=== PATIENT | male | born 1945 | race African-American/Black ===

== ENCOUNTER 2020-01-26 09:04 | Observation (INO) ==
[2020-01-26 09:31] LABS: Basophils % 0.3 % (0.0-0.8); Eosinophils # 0.2 10*3/uL (0.0-0.87); Eosinophils % 3.2 % (0.00-10.9); Hematocrit 41.3 VOL% (42.0-52.0); Hemoglobin 13.2 GM/DL (14.0-18.0); Immature Granulocytes % 0.2 %; Immature Granulocytes Absolute 0.01 #; Lymphocytes % 31.1 % (21.2-54.2); Mean Corpuscular Volume 90.8 FL (87-102); Mean Platelet Volume 9.8 FL (9.6-12.0); Monocytes % 9.1 % (1.7-12.7); Neutrophils % 56.1 % (38.7-73.9); Platelet Count 229 T/CUMM (130-400); Red Blood Count 4.55 MC/CUMM (3.8-5.5); Red Cell Distribution Width 13.4 % (9.3-17.3); White Blood Count 6.5 T/CUMM (4-12)
[2020-01-26 10:16] LABS: Albumin 3.6 G/DL (3.4-5.0); Bilirubin,Total 0.6 MG/DL (0.2-1.0); Calcium 9.8 MG/DL (8.5-10.1); Osmolality,Calculated 281.7 MOS/KG (273-304); Total Protein 7.3 G/DL (6.4-8.3)
[2020-01-26] MEDS ORDERED: ONDANSETRON 4 MG/2 ML VIAL IV PRN (12:12)
[2020-01-26] MEDS ORDERED: ACETAMINOPHEN 325 MG TABLET PO PRN (12:12)
[2020-01-26] MEDS ORDERED: DEXTROSE 50% 25 GM/50 ML VIAL IV PRN (12:37)
[2020-01-26] MEDS ORDERED: GLUCAGON 1 MG VIAL IM PRN (12:37)
[2020-01-26] MEDS: SODIUM CHLORIDE 0.9% 1,000 ML IV SCH ×2 (14:28→22:25)
[2020-01-26] MEDS: DOCUSATE SODIUM 100 MG CAPSULE PO SCH (21:01)
[2020-01-26] MEDS: MECLIZINE 25 MG TABLET PO SCH (22:31)
[2020-01-26] MEDS: FLUTICASONE 50 MCG NASAL SPRAY 16 GM BOTTLE BOTH NARES SCH (22:31)
[2020-01-26] MEDS: BRIMONIDINE 0.2% OPH SOLN 5 ML BOTTLE BOTH EYES SCH (22:32)
[2020-01-26] MEDS: BIMATOPROST 0.01% OPH SOLN 2.5 ML BOTTLE BOTH EYES SCH (22:32)
[2020-01-26] MEDS: DONEPEZIL 10 MG TABLET PO SCH (22:32)
[2020-01-27] MEDS: SODIUM CHLORIDE 0.9% 1,000 ML IV SCH ×3 (05:57→22:11)
[2020-01-27] MEDS: FENOFIBRATE 160 MG TABLET PO SCH (08:31)
[2020-01-27] MEDS: SUCRALFATE 1 GM/10 ML UDCUP PO SCH ×4 (08:31→20:43)
[2020-01-27] MEDS: ASPIRIN EC 81 MG TABLET PO SCH (08:32)
[2020-01-27] MEDS: MECLIZINE 25 MG TABLET PO SCH ×2 (08:32→20:43)
[2020-01-27] MEDS: MAGNESIUM OXIDE 400 MG TABLET PO SCH (08:32)
[2020-01-27] MEDS: FEXOFENADINE 180 MG TABLET PO SCH (08:32)
[2020-01-27] MEDS: CHOLECALCIFEROL 1,000 UNIT TABLET PO SCH (08:32)
[2020-01-27] MEDS: DOCUSATE SODIUM 100 MG CAPSULE PO SCH ×2 (08:32→20:43)
[2020-01-27] MEDS: PANTOPRAZOLE 40 MG TABLET PO SCH (08:33)
[2020-01-27] MEDS: LINACLOTIDE 145 MCG CAPSULE PO SCH (08:33)
[2020-01-27] MEDS: FERROUS SULFATE 325 MG TABLET PO SCH (08:33)
[2020-01-27] MEDS: VENLAFAXINE XR 75 MG CAPSULE PO SCH (08:33)
[2020-01-27] MEDS: metFORMIN 500 MG TABLET PO SCH (08:33)
[2020-01-27] MEDS: BRIMONIDINE 0.2% OPH SOLN 5 ML BOTTLE BOTH EYES SCH ×2 (08:34→20:43)
[2020-01-27] MEDS: ROSUVASTATIN 10 MG TABLET PO SCH (08:34)
[2020-01-27] MEDS: levETIRAcetam 500 MG TABLET PO SCH ×2 (15:57→20:43)
[2020-01-27] MEDS: DONEPEZIL 10 MG TABLET PO SCH (20:39)
[2020-01-27] MEDS: FLUTICASONE 50 MCG NASAL SPRAY 16 GM BOTTLE BOTH NARES SCH (20:42)
[2020-01-27] MEDS: BIMATOPROST 0.01% OPH SOLN 2.5 ML BOTTLE BOTH EYES SCH (20:44)
[2020-01-28] MEDS: SODIUM CHLORIDE 0.9% 1,000 ML IV SCH ×4 (04:13→23:59)
[2020-01-28] MEDS: ASPIRIN EC 81 MG TABLET PO SCH (08:49)
[2020-01-28] MEDS: BRIMONIDINE 0.2% OPH SOLN 5 ML BOTTLE BOTH EYES SCH ×2 (08:49→20:55)
[2020-01-28] MEDS: VENLAFAXINE XR 75 MG CAPSULE PO SCH (08:50)
[2020-01-28] MEDS: MECLIZINE 25 MG TABLET PO SCH ×2 (08:50→20:55)
[2020-01-28] MEDS: MAGNESIUM OXIDE 400 MG TABLET PO SCH (08:50)
[2020-01-28] MEDS: FERROUS SULFATE 325 MG TABLET PO SCH (08:50)
[2020-01-28] MEDS: CHOLECALCIFEROL 1,000 UNIT TABLET PO SCH (08:50)
[2020-01-28] MEDS: PANTOPRAZOLE 40 MG TABLET PO SCH (08:50)
[2020-01-28] MEDS: levETIRAcetam 500 MG TABLET PO SCH ×2 (08:50→20:55)
[2020-01-28] MEDS: FENOFIBRATE 160 MG TABLET PO SCH (08:50)
[2020-01-28] MEDS: FEXOFENADINE 180 MG TABLET PO SCH (08:51)
[2020-01-28] MEDS: metFORMIN 500 MG TABLET PO SCH (08:51)
[2020-01-28] MEDS: ROSUVASTATIN 10 MG TABLET PO SCH (08:51)
[2020-01-28] MEDS: SUCRALFATE 1 GM/10 ML UDCUP PO SCH ×4 (08:51→20:55)
[2020-01-28] MEDS: DOCUSATE SODIUM 100 MG CAPSULE PO SCH ×2 (08:51→20:55)
[2020-01-28] MEDS: LINACLOTIDE 145 MCG CAPSULE PO SCH (08:52)
[2020-01-28] MEDS: DONEPEZIL 10 MG TABLET PO SCH (20:54)
[2020-01-28] MEDS: FLUTICASONE 50 MCG NASAL SPRAY 16 GM BOTTLE BOTH NARES SCH (20:55)
[2020-01-28] MEDS: BIMATOPROST 0.01% OPH SOLN 2.5 ML BOTTLE BOTH EYES SCH (20:55)
[2020-01-29] MEDS: SODIUM CHLORIDE 0.9% 1,000 ML IV SCH (07:11)
[2020-01-29] MEDS: FENOFIBRATE 160 MG TABLET PO SCH (08:54)
[2020-01-29] MEDS: ROSUVASTATIN 10 MG TABLET PO SCH (08:55)
[2020-01-29] MEDS: PANTOPRAZOLE 40 MG TABLET PO SCH (08:55)
[2020-01-29] MEDS: levETIRAcetam 500 MG TABLET PO SCH (08:55)
[2020-01-29] MEDS: FERROUS SULFATE 325 MG TABLET PO SCH (08:55)
[2020-01-29] MEDS: MAGNESIUM OXIDE 400 MG TABLET PO SCH (08:55)
[2020-01-29] MEDS: CHOLECALCIFEROL 1,000 UNIT TABLET PO SCH (08:55)
[2020-01-29] MEDS: metFORMIN 500 MG TABLET PO SCH (08:55)
[2020-01-29] MEDS: MECLIZINE 25 MG TABLET PO SCH (08:55)
[2020-01-29] MEDS: ASPIRIN EC 81 MG TABLET PO SCH (08:55)
[2020-01-29] MEDS: DOCUSATE SODIUM 100 MG CAPSULE PO SCH (08:55)
[2020-01-29] MEDS: VENLAFAXINE XR 75 MG CAPSULE PO SCH (08:55)
[2020-01-29] MEDS: FEXOFENADINE 180 MG TABLET PO SCH (08:56)
[2020-01-29] MEDS: SUCRALFATE 1 GM/10 ML UDCUP PO SCH ×2 (08:56→12:21)
[2020-01-29] MEDS: BRIMONIDINE 0.2% OPH SOLN 5 ML BOTTLE BOTH EYES SCH (08:56)
[2020-01-29] MEDS: LINACLOTIDE 145 MCG CAPSULE PO SCH (08:57)
[2020-01-29 11:56] VITALS: BP 158/81
== END 2020-01-29 15:18 | disposition home or self-care (01) ==
LOC: EDBD → EDUNIT# → N.EDINP 09:04 → N.ED 09:04 → N.5E 11:59
PROVIDERS: ADMIT Internal Medicine; ATTEND Internal Medicine

== ENCOUNTER 2020-06-01 18:13 | Observation (INO) ==
[2020-06-01] MEDS ORDERED: PANTOPRAZOLE 40 MG VIAL IV STA (21:29)
[2020-06-01 21:40] LABS: Basophils % 0.2 % (0.0-0.8); Eosinophils # 0.2 10*3/uL (0.0-0.87); Eosinophils % 2.2 % (0.00-10.9); Hematocrit 38.4 VOL% (42.0-52.0); Hemoglobin 12.3 GM/DL (14.0-18.0); Immature Granulocytes % 0.5 %; Immature Granulocytes Absolute 0.04 #; Lymphocytes # 1.8 10*3/uL (1.4-4.0); Lymphocytes % 22.8 % (21.2-54.2); Mean Corpuscular Volume 96.7 FL (87-102); Mean Platelet Volume 9.9 FL (9.6-12.0); Monocytes % 9.7 % (1.7-12.7); Neutrophils % 64.6 % (38.7-73.9); Platelet Count 232 T/CUMM (130-400); Red Blood Count 3.97 MC/CUMM (3.8-5.5); Red Cell Distribution Width 13.7 % (9.3-17.3)
[2020-06-01 21:54] LABS: Albumin 3.9 G/DL (3.4-5.0); Bilirubin,Total 0.5 MG/DL (0.2-1.0); Calcium 10.2 MG/DL (8.5-10.1); Osmolality,Calculated 281.5 MOS/KG (273-304); Potassium 3.7 MMOL/L (3.5-5.1); Total Protein 8.3 G/DL (6.4-8.3)
[2020-06-02] MEDS ORDERED: ONDANSETRON 4 MG/2 ML VIAL IV PRN (00:39)
[2020-06-02] MEDS ORDERED: DEXTROSE 50% 25 GM/50 ML VIAL IV PRN (00:39)
[2020-06-02] MEDS ORDERED: LACTULOSE 20 GM/30 ML UDCUP PO PRN (00:39)
[2020-06-02] MEDS ORDERED: GLUCAGON 1 MG VIAL IM PRN (00:39)
[2020-06-02] MEDS ORDERED: ACETAMINOPHEN 325 MG TABLET PO PRN (00:39)
[2020-06-02] MEDS: SODIUM CHLORIDE 0.9% 1,000 ML IV SCH ×2 (00:50→09:04)
[2020-06-02] MEDS: INSULIN REGULAR 100 UNIT/ML SUBCUT SCH ×4 (01:02→17:02)
[2020-06-02] MEDS: MORPHINE 4 MG/1 ML VIAL IV PRN ×2 (01:04→09:04)
[2020-06-02 01:40] LABS: INR 1.2; PT Patient Result 14.2 SECS (9.8-11.9)
[2020-06-02 05:46] LABS: Basophils % 0.1 % (0.0-0.8); Eosinophils # 0.1 10*3/uL (0.0-0.87); Eosinophils % 1.3 % (0.00-10.9); Hematocrit 33.7 VOL% (42.0-52.0); Hemoglobin 10.7 GM/DL (14.0-18.0); Immature Granulocytes % 0.3 %; Immature Granulocytes Absolute 0.03 #; Lymphocytes # 1.7 10*3/uL (1.4-4.0); Lymphocytes % 19.9 % (21.2-54.2); Mean Corpuscular HGB Conc 31.8 GM/DL (32-36); Mean Corpuscular Volume 96.3 FL (87-102); Mean Platelet Volume 10.1 FL (9.6-12.0); Monocytes % 9.9 % (1.7-12.7); Neutrophils % 68.5 % (38.7-73.9); Platelet Count 213 T/CUMM (130-400); Red Cell Distribution Width 13.7 % (9.3-17.3); White Blood Count 8.7 T/CUMM (4-12)
[2020-06-02 06:12] LABS: Albumin 3.3 G/DL (3.4-5.0); Bilirubin,Total 1.2 MG/DL (0.2-1.0); Calcium 9.6 MG/DL (8.5-10.1); Osmolality,Calculated 279.7 MOS/KG (273-304); Potassium 3.9 MMOL/L (3.5-5.1); Total Protein 7.2 G/DL (6.4-8.3)
[2020-06-02] MEDS: DOCUSATE SODIUM 100 MG CAPSULE PO SCH ×2 (09:04→20:50)
[2020-06-02] MEDS: PANTOPRAZOLE 40 MG VIAL IV SCH (09:05)
[2020-06-02] MEDS: levETIRAcetam 500 MG TABLET PO SCH (20:50)
[2020-06-02] MEDS ORDERED: FLUTICASONE 50 MCG NASAL SPRAY 16 GM BOTTLE BOTH NARES PRN (21:55)
[2020-06-02] MEDS ORDERED: MEMANTINE 10 MG TABLET PO SCH (22:00)
[2020-06-03] MEDS: BIMATOPROST 0.01% OPH SOLN 2.5 ML BOTTLE BOTH EYES SCH ×2 (00:41→21:51)
[2020-06-03] MEDS: BRIMONIDINE 0.2% OPH SOLN 5 ML BOTTLE BOTH EYES SCH ×3 (00:41→21:51)
[2020-06-03] MEDS: SIMVASTATIN 10 MG TABLET PO SCH ×2 (00:41→21:52)
[2020-06-03] MEDS: DONEPEZIL 10 MG TABLET PO SCH ×2 (00:41→21:52)
[2020-06-03] MEDS: DOCUSATE SODIUM 100 MG CAPSULE PO SCH ×5 (00:41→21:52)
[2020-06-03] MEDS: QUEtiapine 25 MG TABLET PO SCH ×2 (00:41→21:52)
[2020-06-03] MEDS: SODIUM CHLORIDE 0.9% 1,000 ML IV SCH ×5 (00:42→23:40)
[2020-06-03] MEDS: INSULIN REGULAR 100 UNIT/ML SUBCUT SCH ×4 (05:53→17:02)
[2020-06-03] MEDS: VENLAFAXINE XR 75 MG CAPSULE PO SCH (09:21)
[2020-06-03] MEDS: MECLIZINE 25 MG TABLET PO SCH ×2 (09:22→21:52)
[2020-06-03] MEDS: levETIRAcetam 500 MG TABLET PO SCH ×2 (09:22→21:52)
[2020-06-03] MEDS: MEGESTROL 40 MG TABLET PO SCH ×3 (09:22→15:31)
[2020-06-03] MEDS: LINACLOTIDE 145 MCG CAPSULE PO SCH (09:22)
[2020-06-03] MEDS: MAGNESIUM OXIDE 400 MG TABLET PO SCH (09:22)
[2020-06-03] MEDS: FEXOFENADINE 180 MG TABLET PO SCH (09:22)
[2020-06-03] MEDS: ASPIRIN EC 81 MG TABLET PO SCH (09:22)
[2020-06-03] MEDS: PANTOPRAZOLE 40 MG VIAL IV SCH (09:23)
[2020-06-03] MEDS ORDERED: LACTULOSE 20 GM/30 ML UDCUP PO ONE (09:49)
[2020-06-03] MEDS ORDERED: HYDROCORTISONE 2.5% RECTAL CREAM 30 GM TUBE TOP PRN (12:09)
[2020-06-03] MEDS: MORPHINE 4 MG/1 ML VIAL IV PRN (14:44)
[2020-06-03] MEDS ORDERED: SODIUM PHOSPHATE ENEMA 133 ML BOTTLE RECTAL ONE (21:00)
[2020-06-03] MEDS: MEMANTINE 10 MG TABLET PO SCH (21:52)
[2020-06-04] MEDS: INSULIN REGULAR 100 UNIT/ML SUBCUT SCH ×3 (02:55→11:46)
[2020-06-04] MEDS: SODIUM CHLORIDE 0.9% 1,000 ML IV SCH (07:40)
[2020-06-04] MEDS: PANTOPRAZOLE 40 MG VIAL IV SCH (08:33)
[2020-06-04] MEDS: LINACLOTIDE 145 MCG CAPSULE PO SCH (08:34)
[2020-06-04] MEDS: MECLIZINE 25 MG TABLET PO SCH (08:34)
[2020-06-04] MEDS: MAGNESIUM OXIDE 400 MG TABLET PO SCH (08:34)
[2020-06-04] MEDS: MEGESTROL 40 MG TABLET PO SCH ×2 (08:34→11:58)
[2020-06-04] MEDS: levETIRAcetam 500 MG TABLET PO SCH (08:34)
[2020-06-04] MEDS: VENLAFAXINE XR 75 MG CAPSULE PO SCH (08:34)
[2020-06-04] MEDS: DOCUSATE SODIUM 100 MG CAPSULE PO SCH ×2 (08:34→08:36)
[2020-06-04] MEDS: ASPIRIN EC 81 MG TABLET PO SCH (08:34)
[2020-06-04] MEDS: FEXOFENADINE 180 MG TABLET PO SCH (08:34)
[2020-06-04] MEDS: BRIMONIDINE 0.2% OPH SOLN 5 ML BOTTLE BOTH EYES SCH (08:35)
[2020-06-04] MEDS: MEMANTINE 10 MG TABLET PO SCH (08:35)
[2020-06-04] MEDS ORDERED: POLYETHYLENE GLYCOL POWDER 17 GM PACK PO SCH (09:00)
[2020-06-04 12:21] VITALS: BP 164/86
== END 2020-06-04 15:50 | disposition home health service (06) ==
LOC: N.ED 18:13 → N.EDINP 18:13 → N.5E 06-02 00:39
PROVIDERS: ADMIT Internal Medicine; ATTEND Internal Medicine

== ENCOUNTER 2021-05-26 23:41 | Inpatient (IN) ==
[2021-05-27] MEDS ORDERED: ALUM/MAG/SIMETH/LIDO VISC 1:1 30 ML BOTTLE PO STA (00:48)
[2021-05-27] MEDS ORDERED: ONDANSETRON 4 MG/2 ML VIAL IV STA (00:48)
[2021-05-27] MEDS ORDERED: PANTOPRAZOLE 40 MG VIAL IV STA (00:48)
[2021-05-27] MEDS ORDERED: SODIUM CHLORIDE 0.9% 500 ML IV STA (00:48)
[2021-05-27 01:22] LABS: Basophils % 0.3 % (0.0-0.8); Eosinophils # 0.2 10*3/uL (0.0-0.87); Eosinophils % 2.4 % (0.00-10.9); Hematocrit 35.4 VOL% (42.0-52.0); Hemoglobin 11.5 GM/DL (14.0-18.0); Immature Granulocytes % 0.3 %; Immature Granulocytes Absolute 0.02 #; Lymphocytes # 1.5 10*3/uL (1.4-4.0); Lymphocytes % 19.3 % (21.2-54.2); Mean Corpuscular HGB Conc 32.5 GM/DL (32-36); Mean Corpuscular Volume 89.4 FL (87-102); Mean Platelet Volume 10.5 FL (9.6-12.0); Monocytes % 7.8 % (1.7-12.7); Neutrophils % 69.9 % (38.7-73.9); Platelet Count 157 T/CUMM (130-400); Red Blood Count 3.96 MC/CUMM (3.8-5.5); White Blood Count 7.9 T/CUMM (4-12)
[2021-05-27 01:42] LABS: Bilirubin,Urine Negative (Negative); Blood, Urine Negative (Negative); Glucose,Urine (UA) Negative (Negative); Ketones,Urine Negative (Negative); Mucus,Urine Occasional /LPF (Occasional); Nitrite,Urine Negative (Negative); Protein,Urine Negative; Squamous Epithelial Cell,Urine Occasional /HPF (0-10); Urine Appearance CLOUDY (Clear); Urine Color Amber (Yellow); Urine Specific Gravity 1.013 (1.001-1.035)
[2021-05-27 02:22] LABS: Albumin 3.3 G/DL (3.4-5.0); Bilirubin,Total 2.1 MG/DL (0.20-1.00); Calcium 9.7 MG/DL (8.5-10.1); Osmolality,Calculated 286.1 MOS/KG (273-304); Potassium 3.8 MMOL/L (3.5-5.1); Total Protein 7.4 G/DL (6.4-8.2)
[2021-05-27] MEDS ORDERED: ACETAMINOPHEN 325 MG TABLET PO PRN (05:07)
[2021-05-27] MEDS ORDERED: GLUCAGON 1 MG VIAL IM PRN (05:07)
[2021-05-27] MEDS ORDERED: ONDANSETRON 4 MG/2 ML VIAL IV PRN (05:07)
[2021-05-27] MEDS ORDERED: DEXTROSE 10% 250 ML BAG IV PRN (05:07)
[2021-05-27] MEDS: SODIUM CHLORIDE 0.9% 1,000 ML IV SCH ×2 (06:24→13:10)
[2021-05-27] MEDS: INSULIN REGULAR 100 UNIT/ML SUBCUT SCH ×3 (06:24→17:50)
[2021-05-27] MEDS: LEVOFLOXACIN INJ 750 MG/150 ML PREMIX IV SCH (06:24)
[2021-05-27] MEDS: DOCUSATE SODIUM 100 MG CAPSULE PO SCH ×3 (08:57→21:08)
[2021-05-27] MEDS: PANTOPRAZOLE 40 MG VIAL IV SCH (08:57)
[2021-05-27 13:06] LABS: Hepatitis B Core IgM Quant 0.11 Index; Hepatitis B Surface Ag Quant < 0.10 Index; Hepatitis B Surface Ag Result Non-Reactive (NonReactive); Hepatitis C Virus Ab Quant 0.16 Index; Hepatitis C Virus Ab Result Non-Reactive (NonReactive)
[2021-05-27] MEDS ORDERED: MAGNESIUM SULF RIDER 2 GM/50 ML PREMIX IV ONE (16:03)
[2021-05-27] MEDS ORDERED: FLUTICASONE 50 MCG NASAL SPRAY 16 GM BOTTLE BOTH NARES PRN (16:07)
[2021-05-27] MEDS ORDERED: MECLIZINE 25 MG TABLET PO PRN (16:07)
[2021-05-27] MEDS ORDERED: amLODIPine 10 MG TABLET PO SCH (16:30)
[2021-05-27] MEDS ORDERED: FENOFIBRATE 160 MG TABLET PO SCH (16:30)
[2021-05-27] MEDS: ASPIRIN 325 MG TABLET PO SCH (16:36)
[2021-05-27] MEDS: FEXOFENADINE 180 MG TABLET PO SCH (16:36)
[2021-05-27] MEDS: CHOLECALCIFEROL 1,000 UNIT TABLET PO SCH (16:36)
[2021-05-27] MEDS: MEGESTROL 40 MG TABLET PO SCH (21:07)
[2021-05-27] MEDS: levETIRAcetam 500 MG TABLET PO SCH (21:07)
[2021-05-27] MEDS: AZELASTINE NASAL 137 MCG/SPRAY 30 ML BOTTLE BOTH NARES SCH (21:08)
[2021-05-27] MEDS: MEMANTINE 10 MG TABLET PO SCH (21:08)
[2021-05-27] MEDS: QUEtiapine 25 MG TABLET PO SCH (21:08)
[2021-05-27] MEDS: BIMATOPROST 0.01% OPH SOLN 2.5 ML BOTTLE BOTH EYES SCH (21:08)
[2021-05-27] MEDS: cloNIDine 0.1 MG TABLET PO SCH (22:11)
[2021-05-28] MEDS: INSULIN REGULAR 100 UNIT/ML SUBCUT SCH ×4 (00:26→18:29)
[2021-05-28] MEDS: SODIUM CHLORIDE 0.9% 1,000 ML IV SCH ×3 (04:23→18:29)
[2021-05-28 05:00] LABS: Basophils % 0.2 % (0.0-0.8); Eosinophils # 0.2 10*3/uL (0.0-0.87); Eosinophils % 4.4 % (0.00-10.9); Hematocrit 32.9 VOL% (42.0-52.0); Hemoglobin 10.9 GM/DL (14.0-18.0); Immature Granulocytes % 0.2 %; Immature Granulocytes Absolute 0.01 #; Lymphocytes # 1.6 10*3/uL (1.4-4.0); Lymphocytes % 33.2 % (21.2-54.2); Mean Corpuscular HGB Conc 33.1 GM/DL (32-36); Mean Corpuscular Volume 89.4 FL (87-102); Mean Platelet Volume 10.8 FL (9.6-12.0); Monocytes % 9.7 % (1.7-12.7); Neutrophils % 52.3 % (38.7-73.9); Platelet Count 146 T/CUMM (130-400); Red Blood Count 3.68 MC/CUMM (3.8-5.5); Red Cell Distribution Width 15.1 % (9.3-17.3); White Blood Count 4.8 T/CUMM (4-12)
[2021-05-28 05:14] LABS: Albumin 2.6 G/DL (3.4-5.0); Bilirubin,Total 4.5 MG/DL (0.20-1.00); Calcium 9.6 MG/DL (8.5-10.1); Osmolality,Calculated 280.4 MOS/KG (273-304); Potassium 3.4 MMOL/L (3.5-5.1); Total Protein 6.7 G/DL (6.4-8.2)
[2021-05-28] MEDS: LEVOFLOXACIN INJ 750 MG/150 ML PREMIX IV SCH (05:40)
[2021-05-28] MEDS: MAGNESIUM OXIDE 400 MG TABLET PO SCH (08:02)
[2021-05-28] MEDS: MEGESTROL 40 MG TABLET PO SCH ×2 (08:02→20:32)
[2021-05-28] MEDS: CHOLECALCIFEROL 1,000 UNIT TABLET PO SCH (08:02)
[2021-05-28] MEDS: AZELASTINE NASAL 137 MCG/SPRAY 30 ML BOTTLE BOTH NARES SCH ×2 (08:02→20:32)
[2021-05-28] MEDS: VENLAFAXINE XR 75 MG CAPSULE PO SCH (08:02)
[2021-05-28] MEDS: levETIRAcetam 500 MG TABLET PO SCH ×2 (08:02→20:32)
[2021-05-28] MEDS: PANTOPRAZOLE 40 MG VIAL IV SCH (08:03)
[2021-05-28] MEDS: DOCUSATE SODIUM 100 MG CAPSULE PO SCH ×3 (08:03→20:32)
[2021-05-28] MEDS: FEXOFENADINE 180 MG TABLET PO SCH (08:03)
[2021-05-28] MEDS: ASPIRIN 325 MG TABLET PO SCH (09:19)
[2021-05-28] MEDS: MAGNESIUM HYDROXIDE SUSP 30 ML UDCUP PO PRN ×2 (11:59→18:30)
[2021-05-28] MEDS: cloNIDine 0.1 MG TABLET PO SCH (20:32)
[2021-05-28] MEDS: QUEtiapine 25 MG TABLET PO SCH (20:32)
[2021-05-28] MEDS: MEMANTINE 10 MG TABLET PO SCH (20:32)
[2021-05-28] MEDS: BIMATOPROST 0.01% OPH SOLN 2.5 ML BOTTLE BOTH EYES SCH (20:32)
[2021-05-29] MEDS: INSULIN REGULAR 100 UNIT/ML SUBCUT SCH ×4 (00:36→17:49)
[2021-05-29] MEDS: SODIUM CHLORIDE 0.9% 1,000 ML IV SCH ×3 (04:37→21:35)
[2021-05-29] MEDS: LEVOFLOXACIN INJ 750 MG/150 ML PREMIX IV SCH (06:10)
[2021-05-29] MEDS: MAGNESIUM HYDROXIDE SUSP 30 ML UDCUP PO PRN (08:18)
[2021-05-29] MEDS: AZELASTINE NASAL 137 MCG/SPRAY 30 ML BOTTLE BOTH NARES SCH ×2 (08:18→20:17)
[2021-05-29] MEDS: PANTOPRAZOLE 40 MG VIAL IV SCH (08:18)
[2021-05-29] MEDS: DOCUSATE SODIUM 100 MG CAPSULE PO SCH ×3 (08:19→20:11)
[2021-05-29] MEDS: levETIRAcetam 500 MG TABLET PO SCH ×2 (08:19→20:11)
[2021-05-29] MEDS: VENLAFAXINE XR 75 MG CAPSULE PO SCH (08:19)
[2021-05-29] MEDS: FEXOFENADINE 180 MG TABLET PO SCH (08:19)
[2021-05-29] MEDS: ASPIRIN 325 MG TABLET PO SCH (08:19)
[2021-05-29] MEDS: MAGNESIUM OXIDE 400 MG TABLET PO SCH (08:19)
[2021-05-29] MEDS: MEGESTROL 40 MG TABLET PO SCH ×2 (08:19→20:11)
[2021-05-29] MEDS: CHOLECALCIFEROL 1,000 UNIT TABLET PO SCH (08:19)
[2021-05-29 09:02] LABS: Albumin 2.7 G/DL (3.4-5.0); Bilirubin,Direct 2.89 MG/DL (0.0-0.20); Bilirubin,Indirect 0.7 MG/DL (0.0-1.0); Bilirubin,Total 3.6 MG/DL (0.20-1.00)
[2021-05-29] MEDS ORDERED: INDOMETHACIN SUPP 50 MG SUPP RECTAL ONE (12:38)
[2021-05-29] MEDS: cloNIDine 0.1 MG TABLET PO SCH (20:11)
[2021-05-29] MEDS: MEMANTINE 10 MG TABLET PO SCH (20:11)
[2021-05-29] MEDS: QUEtiapine 25 MG TABLET PO SCH (20:11)
[2021-05-29] MEDS: BIMATOPROST 0.01% OPH SOLN 2.5 ML BOTTLE BOTH EYES SCH (20:18)
[2021-05-30] MEDS: INSULIN REGULAR 100 UNIT/ML SUBCUT SCH ×4 (01:03→18:15)
[2021-05-30] MEDS: LEVOFLOXACIN INJ 750 MG/150 ML PREMIX IV SCH (05:40)
[2021-05-30] MEDS: SODIUM CHLORIDE 0.9% 1,000 ML IV SCH ×2 (07:34→20:53)
[2021-05-30] MEDS ORDERED: INDOMETHACIN SUPP 50 MG SUPP RECTAL ONE (08:11)
[2021-05-30] MEDS: DOCUSATE SODIUM 100 MG CAPSULE PO SCH ×3 (08:41→20:50)
[2021-05-30] MEDS: MEGESTROL 40 MG TABLET PO SCH ×2 (08:41→20:50)
[2021-05-30] MEDS: CHOLECALCIFEROL 1,000 UNIT TABLET PO SCH (08:41)
[2021-05-30] MEDS: FEXOFENADINE 180 MG TABLET PO SCH (08:41)
[2021-05-30] MEDS: VENLAFAXINE XR 75 MG CAPSULE PO SCH (08:41)
[2021-05-30] MEDS: ASPIRIN 325 MG TABLET PO SCH (08:41)
[2021-05-30] MEDS: MAGNESIUM OXIDE 400 MG TABLET PO SCH (08:41)
[2021-05-30] MEDS: PANTOPRAZOLE 40 MG VIAL IV SCH (08:43)
[2021-05-30] MEDS: levETIRAcetam 500 MG TABLET PO SCH ×2 (08:43→20:51)
[2021-05-30] MEDS: AZELASTINE NASAL 137 MCG/SPRAY 30 ML BOTTLE BOTH NARES SCH ×2 (08:44→20:51)
[2021-05-30 09:47] LABS: Basophils % 0.2 % (0.0-0.8); Eosinophils # 0.3 10*3/uL (0.0-0.87); Eosinophils % 5.9 % (0.00-10.9); Hematocrit 33.2 VOL% (42.0-52.0); Hemoglobin 10.8 GM/DL (14.0-18.0); Immature Granulocytes % 0.5 %; Immature Granulocytes Absolute 0.02 #; Lymphocytes # 1.5 10*3/uL (1.4-4.0); Lymphocytes % 35.1 % (21.2-54.2); Mean Corpuscular HGB Conc 32.5 GM/DL (32-36); Mean Corpuscular Volume 89.7 FL (87-102); Mean Platelet Volume 10.7 FL (9.6-12.0); Monocytes % 9.5 % (1.7-12.7); Neutrophils % 48.8 % (38.7-73.9); Platelet Count 162 T/CUMM (130-400); Red Cell Distribution Width 15.3 % (9.3-17.3); White Blood Count 4.2 T/CUMM (4-12)
[2021-05-30 10:13] LABS: Albumin 2.7 G/DL (3.4-5.0); Bilirubin,Total 1.6 MG/DL (0.20-1.00); Calcium 10.2 MG/DL (8.5-10.1); Osmolality,Calculated 279.4 MOS/KG (273-304); Potassium 3.7 MMOL/L (3.5-5.1); Total Protein 7.1 G/DL (6.4-8.2)
[2021-05-30 10:30] LABS: PT Patient Result 11.1 SECS (10.5-12.0)
[2021-05-30] MEDS ORDERED: LIDOCAINE 2% 5 ML VIAL ONE (12:02)
[2021-05-30] MEDS ORDERED: SUCCINYLCHOLINE 200 MG/10 ML VIAL ONE (12:02)
[2021-05-30] MEDS ORDERED: SEVOFLURANE 1 UNIT/15 MINUTE INH ONE (12:02)
[2021-05-30] MEDS ORDERED: propofoL 200 MG/20 ML VIAL IV ONE (12:02)
[2021-05-30] MEDS ORDERED: ONDANSETRON 4 MG/2 ML VIAL ONE (12:02)
[2021-05-30] MEDS ORDERED: PHENYLEPHRINE 1 MG/10 ML SYRINGE IV ONE ×2 (13:32→13:58)
[2021-05-30] MEDS ORDERED: ESMOLOL 100 MG/10 ML VIAL IV ONE (13:32)
[2021-05-30] MEDS ORDERED: GLUCAGON 1 MG VIAL IM PRN (14:27)
[2021-05-30] MEDS ORDERED: DEXTROSE 50% 25 GM/50 ML VIAL IV PRN (14:27)
[2021-05-30] MEDS: LACTATED RINGERS 1,000 ML IV SCH (14:40)
[2021-05-30] MEDS: QUEtiapine 25 MG TABLET PO SCH (20:50)
[2021-05-30] MEDS: MEMANTINE 10 MG TABLET PO SCH (20:51)
[2021-05-30] MEDS: cloNIDine 0.1 MG TABLET PO SCH (20:51)
[2021-05-30] MEDS: BIMATOPROST 0.01% OPH SOLN 2.5 ML BOTTLE BOTH EYES SCH (20:51)
[2021-05-31] MEDS: INSULIN REGULAR 100 UNIT/ML SUBCUT SCH ×4 (00:27→18:09)
[2021-05-31 03:49] LABS: Basophils % 0.4 % (0.0-0.8); Eosinophils # 0.2 10*3/uL (0.0-0.87); Eosinophils % 4.9 % (0.00-10.9); Hematocrit 32.2 VOL% (42.0-52.0); Hemoglobin 10.4 GM/DL (14.0-18.0); Immature Granulocytes % 0.4 %; Immature Granulocytes Absolute 0.02 #; Lymphocytes # 1.7 10*3/uL (1.4-4.0); Lymphocytes % 37.9 % (21.2-54.2); Mean Corpuscular HGB Conc 32.3 GM/DL (32-36); Mean Platelet Volume 10.7 FL (9.6-12.0); Monocytes % 9.8 % (1.7-12.7); Neutrophils % 46.6 % (38.7-73.9); Platelet Count 164 T/CUMM (130-400); Red Blood Count 3.54 MC/CUMM (3.8-5.5); Red Cell Distribution Width 15.3 % (9.3-17.3); White Blood Count 4.5 T/CUMM (4-12)
[2021-05-31 04:08] LABS: Albumin 2.7 G/DL (3.4-5.0); Bilirubin,Total 1.3 MG/DL (0.20-1.00); Calcium 10.3 MG/DL (8.5-10.1); Osmolality,Calculated 282.3 MOS/KG (273-304); Potassium 3.6 MMOL/L (3.5-5.1)
[2021-05-31] MEDS: LEVOFLOXACIN INJ 750 MG/150 ML PREMIX IV SCH (05:38)
[2021-05-31] MEDS: SODIUM CHLORIDE 0.9% 1,000 ML IV SCH ×2 (05:40→17:50)
[2021-05-31] MEDS: PANTOPRAZOLE 40 MG VIAL IV SCH (08:45)
[2021-05-31] MEDS: LACTATED RINGERS 1,000 ML IV SCH (08:45)
[2021-05-31] MEDS: levETIRAcetam 500 MG TABLET PO SCH ×2 (08:46→21:20)
[2021-05-31] MEDS: FEXOFENADINE 180 MG TABLET PO SCH (08:46)
[2021-05-31] MEDS: AZELASTINE NASAL 137 MCG/SPRAY 30 ML BOTTLE BOTH NARES SCH ×2 (08:46→21:20)
[2021-05-31] MEDS: DOCUSATE SODIUM 100 MG CAPSULE PO SCH ×3 (08:46→21:20)
[2021-05-31] MEDS: ASPIRIN 325 MG TABLET PO SCH (08:46)
[2021-05-31] MEDS: VENLAFAXINE XR 75 MG CAPSULE PO SCH (08:46)
[2021-05-31] MEDS: MEGESTROL 40 MG TABLET PO SCH ×2 (08:47→21:20)
[2021-05-31] MEDS: CHOLECALCIFEROL 1,000 UNIT TABLET PO SCH (08:47)
[2021-05-31] MEDS: MAGNESIUM OXIDE 400 MG TABLET PO SCH (08:47)
[2021-05-31] MEDS ORDERED: TISSUE ADHESIVE 1 EACH APPLICATOR TOP ONE (10:09)
[2021-05-31] MEDS ORDERED: BUPIVACAINE MPF 0.25% 30 ML VIAL ONE (10:09)
[2021-05-31] MEDS ORDERED: LIDOCAINE 1%/EPI INJ 20 ML VIAL ONE (10:10)
[2021-05-31] MEDS ORDERED: ROCURONIUM 50 MG/5 ML VIAL IV ONE (10:27)
[2021-05-31] MEDS ORDERED: propofoL 200 MG/20 ML VIAL IV ONE (10:27)
[2021-05-31] MEDS ORDERED: SEVOFLURANE 1 UNIT/15 MINUTE INH ONE (10:27)
[2021-05-31] MEDS ORDERED: ETOMIDATE 40 MG/20 ML VIAL IV ONE (10:27)
[2021-05-31] MEDS ORDERED: ONDANSETRON 4 MG/2 ML VIAL ONE (10:27)
[2021-05-31] MEDS ORDERED: LIDOCAINE 2% 5 ML VIAL ONE (10:27)
[2021-05-31] MEDS ORDERED: fentaNYL 100 MCG/2 ML VIAL ONE ×2 (10:28→11:28)
[2021-05-31] MEDS ORDERED: MIDAZOLAM 2 MG/2 ML VIAL ONE (10:28)
[2021-05-31] MEDS ORDERED: LACTATED RINGERS 1,000 ML IV ONE ×2 (10:52→11:35)
[2021-05-31] MEDS ORDERED: LABETALOL 20 MG/4 ML SYRINGE IV ONE (11:33)
[2021-05-31] MEDS ORDERED: hydrALAZINE 20 MG/1 ML VIAL ONE (11:50)
[2021-05-31] MEDS ORDERED: SUGAMMADEX 200 MG/2 ML VIAL IV ONE (11:59)
[2021-05-31] MEDS ORDERED: ONDANSETRON 4 MG/2 ML VIAL IV PRN (12:50)
[2021-05-31] MEDS: HYDROmorphone 2 MG/1 ML VIAL IV PRN ×4 (13:03→13:31)
[2021-05-31] MEDS: cloNIDine 0.1 MG TABLET PO SCH (21:20)
[2021-05-31] MEDS: QUEtiapine 25 MG TABLET PO SCH (21:20)
[2021-05-31] MEDS: BRIMONIDINE 0.2% OPH SOLN 5 ML BOTTLE BOTH EYES SCH (21:20)
[2021-05-31] MEDS: BIMATOPROST 0.01% OPH SOLN 2.5 ML BOTTLE BOTH EYES SCH (21:20)
[2021-05-31] MEDS: MEMANTINE 10 MG TABLET PO SCH (21:20)
[2021-05-31] MEDS: MORPHINE 2 MG/1 ML SYRINGE IV PRN (21:22)
[2021-06-01] MEDS: INSULIN REGULAR 100 UNIT/ML SUBCUT SCH ×5 (02:01→23:17)
[2021-06-01] MEDS: SODIUM CHLORIDE 0.9% 1,000 ML IV SCH ×3 (02:25→21:32)
[2021-06-01] MEDS: MORPHINE 2 MG/1 ML SYRINGE IV PRN (03:20)
[2021-06-01 05:12] LABS: Basophils % 0.2 % (0.0-0.8); Eosinophils # 0.2 10*3/uL (0.0-0.87); Eosinophils % 3.4 % (0.00-10.9); Hematocrit 29.7 VOL% (42.0-52.0); Hemoglobin 9.7 GM/DL (14.0-18.0); Immature Granulocytes % 0.2 %; Immature Granulocytes Absolute 0.01 #; Lymphocytes # 1.8 10*3/uL (1.4-4.0); Lymphocytes % 37.8 % (21.2-54.2); Mean Corpuscular HGB Conc 32.7 GM/DL (32-36); Mean Corpuscular Volume 90.8 FL (87-102); Mean Platelet Volume 10.5 FL (9.6-12.0); Monocytes % 10.5 % (1.7-12.7); Neutrophils % 47.9 % (38.7-73.9); Platelet Count 183 T/CUMM (130-400); Red Blood Count 3.27 MC/CUMM (3.8-5.5); Red Cell Distribution Width 15.4 % (9.3-17.3); White Blood Count 4.7 T/CUMM (4-12)
[2021-06-01 05:38] LABS: Albumin 2.2 G/DL (3.4-5.0); Bilirubin,Total 1.1 MG/DL (0.20-1.00); Calcium 9.2 MG/DL (8.5-10.1); Osmolality,Calculated 279.4 MOS/KG (273-304); Potassium 3.5 MMOL/L (3.5-5.1); Total Protein 6.2 G/DL (6.4-8.2)
[2021-06-01] MEDS: LEVOFLOXACIN INJ 750 MG/150 ML PREMIX IV SCH (05:50)
[2021-06-01] MEDS: ASPIRIN 325 MG TABLET PO SCH (10:30)
[2021-06-01] MEDS: FEXOFENADINE 180 MG TABLET PO SCH (10:31)
[2021-06-01] MEDS: VENLAFAXINE XR 75 MG CAPSULE PO SCH (10:31)
[2021-06-01] MEDS: MAGNESIUM OXIDE 400 MG TABLET PO SCH (10:31)
[2021-06-01] MEDS: MEGESTROL 40 MG TABLET PO SCH ×2 (10:32→20:27)
[2021-06-01] MEDS: DOCUSATE SODIUM 100 MG CAPSULE PO SCH ×3 (10:32→20:26)
[2021-06-01] MEDS: levETIRAcetam 500 MG TABLET PO SCH ×2 (10:33→20:27)
[2021-06-01] MEDS: PANTOPRAZOLE 40 MG VIAL IV SCH (10:36)
[2021-06-01] MEDS: AZELASTINE NASAL 137 MCG/SPRAY 30 ML BOTTLE BOTH NARES SCH ×2 (10:39→20:28)
[2021-06-01] MEDS: CHOLECALCIFEROL 1,000 UNIT TABLET PO SCH (10:39)
[2021-06-01] MEDS: BRIMONIDINE 0.2% OPH SOLN 5 ML BOTTLE BOTH EYES SCH ×2 (14:47→20:32)
[2021-06-01] MEDS: LACTATED RINGERS 1,000 ML IV SCH (14:50)
[2021-06-01] MEDS: cloNIDine 0.1 MG TABLET PO SCH (20:26)
[2021-06-01] MEDS: MEMANTINE 10 MG TABLET PO SCH (20:26)
[2021-06-01] MEDS: QUEtiapine 25 MG TABLET PO SCH (20:26)
[2021-06-01] MEDS: BIMATOPROST 0.01% OPH SOLN 2.5 ML BOTTLE BOTH EYES SCH (20:29)
[2021-06-01] MEDS ORDERED: PHENOL 1.4% THROAT SPRAY 177 ML BOTTLE PO PRN (22:18)
[2021-06-02] MEDS: LEVOFLOXACIN INJ 750 MG/150 ML PREMIX IV SCH (05:52)
[2021-06-02] MEDS: INSULIN REGULAR 100 UNIT/ML SUBCUT SCH ×2 (05:52→11:49)
[2021-06-02] MEDS: LACTATED RINGERS 1,000 ML IV SCH (08:30)
[2021-06-02] MEDS: CHOLECALCIFEROL 1,000 UNIT TABLET PO SCH (09:50)
[2021-06-02] MEDS: DOCUSATE SODIUM 100 MG CAPSULE PO SCH ×2 (09:50→09:57)
[2021-06-02] MEDS: levETIRAcetam 500 MG TABLET PO SCH (09:56)
[2021-06-02] MEDS: ASPIRIN 325 MG TABLET PO SCH (09:56)
[2021-06-02] MEDS: MAGNESIUM OXIDE 400 MG TABLET PO SCH (09:56)
[2021-06-02] MEDS: VENLAFAXINE XR 75 MG CAPSULE PO SCH (09:56)
[2021-06-02] MEDS: FEXOFENADINE 180 MG TABLET PO SCH (09:56)
[2021-06-02] MEDS: MEGESTROL 40 MG TABLET PO SCH (09:57)
[2021-06-02] MEDS: PANTOPRAZOLE 40 MG VIAL IV SCH (09:58)
[2021-06-02] MEDS: MORPHINE 2 MG/1 ML SYRINGE IV PRN (09:58)
[2021-06-02 09:59] LABS: Albumin 2.6 G/DL (3.4-5.0); Bilirubin,Direct 0.66 MG/DL (0.0-0.20); Bilirubin,Indirect 0.3 MG/DL (0.0-1.0); Total Protein 6.9 G/DL (6.4-8.2)
[2021-06-02] MEDS: BRIMONIDINE 0.2% OPH SOLN 5 ML BOTTLE BOTH EYES SCH (10:00)
[2021-06-02] MEDS: AZELASTINE NASAL 137 MCG/SPRAY 30 ML BOTTLE BOTH NARES SCH (10:00)
[2021-06-02] MEDS: SODIUM CHLORIDE 0.9% 1,000 ML IV SCH (11:15)
[2021-06-02 15:29] VITALS: BP 138/72
== END 2021-06-02 15:15 | disposition home or self-care (01) | DRG 419 ==
LOC: EDUNIT# → EDBD → N.EDINP 23:41 → N.ED 23:41 → N.3E 05-27 16:01
PROVIDERS: ADMIT Internal Medicine; ATTEND Internal Medicine
PROC: ERCPWSP (ICD-10-PCS; 2021-05-30 11:05)
PROC: LAPCHOL (2021-05-31 10:58)